=== PATIENT | female | born 1970 | race Caucasian/White ===

== ENCOUNTER → 2017-07-08 | Outpatient (CLI) | payer MEDICARE, MEDICAID ==
[~2017-07-08] MED LIST: /ACETCOD3T; /AMLO25TA PO; /CARB20TAB PO; AMBI5TAB; ASPI81TA85 PO; CALC500T49; CALCTAB7 PO; DIFLUC150 PO; FIBER CON; FLON0.05; IBUP600T; OXCA30TA; SIMV10TA2; SIMV5TAB4 PO; SING10TA31; SING4GRA PO; SYNT112T PO; TERAZOL3 VAGINALLY; THERGRAN PO; VICO5TAB; VITA100C PO; VITA400T PO; VOLT75TA
--- NOTE | 2017-07-08 13:29 | REPMRS ---
Patient History The patient states she has not had a clinical breast exam in over a year. Patient is postmenopausal, has history of brain cancer, and is nulliparous. Digital Woman Screen Mammo: July 08, 2017 - Exam #: [id number] Bilateral CC and MLO view(s) were taken. Technologist: Ibeth Watts, Technologist Prior study comparison: February 19, 2011, digital bilateral screening mammo performed at [facility]. February 27, 2010, diagnostic bilateral mammo, performed at [facility]. FINDINGS: There are scattered fibroglandular densities. There has been no change in the appearance of the mammogram from the prior studies. There is a mild amount of residual fibroglandular tissue which is fairly symmetric. There is no interval development of dominant mass, architectural distortion, or clustered microcalcification suggestive of malignancy. ASSESSMENT: BI-RADS/ACR category 1 mammogram. Negative. Recommendation Routine screening mammogram in 1 year (for women over age 40). This mammogram was interpreted with the aid of an FDA-approved computer-aided dectection system. Electronically Signed By: Jas Ott MD 07/08/17 [id number]
== END ==
LOC: M WHC 12:32
PROVIDERS: ATTEND Internal Medicine
DX: Z12.31 Encounter for screening mammogram for malignant neoplasm of breast (principal)